=== PATIENT | female | born 1955 | race Caucasian/White ===

== ENCOUNTER 2021-02-09 16:51 | Outpatient (CLI) | payer BC, SELFPAY ==
--- NOTE | ~2021-02-09 | XR_ITS ---
XR hip RT min 2V 02/09/2021 17:11 Indication: Right hip pain for 2 months Procedure: 3 views right hip Comparison: No prior studies for comparison. Findings: No fracture or traumatic malalignment. There is mild osteoarthritis of the right hip. There is lower lumbar spondylosis. Surrounding osseous structures and soft tissues are unremarkable. Impression: 1: Mild osteoarthritis of the right hip. Reviewed, dictated and finalized at location A. Impression: 1: Mild osteoarthritis of the right hip.
== END 2021-02-09 16:52 | disposition home or self-care (01) ==
PROVIDERS: PCP Internal Medicine; Visit Provider Internal Medicine
DX: M16.11 Unilateral primary osteoarthritis, right hip (principal)
CPT/HCPCS: 73502

== ENCOUNTER 2023-06-28 10:23 | Outpatient (CLI) | payer OTHER, SELFPAY ==
--- NOTE | 2023-06-28 10:37 | ECG_ITS ---
Measurements Intervals [place] Rate: 72 P: 53 [place]: 159 QRS: -20 QRSD: 87 T: 41 QT: 367 QTc: 403 Interpretive Statements SINUS RHYTHM POSSIBLE LEFT ATRIAL ENLARGEMENT [-0.1mV P WAVE IN V1/V2] LOW QRS VOLTAGE IN PRECORDIAL LEADS [QRS DEFLECTION < 1.0 mV IN CHEST LEADS] POSSIBLE RIGHT VENTRICULAR CONDUCTION DELAY [RSR (QR) IN V1/V2] SEPTAL MYOCARDIAL INFARCTION [40+ ms Q WAVE IN V1/V2], PROBABLY OLD ABNORMAL ECG NO PREVIOUS ECG AVAILABLE FOR COMPARISON Electronically Signed On 06-28-2023 13:32:54 CDT by Wally Shepherd M.D.
== END 2023-06-28 10:24 | disposition home or self-care (01) ==
LOC: ANHSURGERY 10:28
PROVIDERS: PCP Internal Medicine; Visit Provider Surgery Plastic and Reconstructive Surgery
DX: Z98.890 Other specified postprocedural states (principal); Z01.818 Encounter for other preprocedural examination
CPT/HCPCS: 93005

== ENCOUNTER 2023-07-03 00:53 | Day surgery (SDC) | payer OTHER, SELFPAY ==
--- NOTE | 2023-06-22 12:07 | PC.NURSE ---
Report to the Outpatient Waiting Room, entrance under the green pavilion located off [facility], at time __0730____ on date __07/03/23 . Planned Procedure Time: 0930 . Time changes happen often and if your time is changed the preop area will call you the afternoon before. - You and your visitor will be asked to self-screen and do not enter if you have any COVID symptoms. - A mask is optional within the hospital at this time. Patients may have clear liquids (water, carbonated beverages, clear teas, apple juice) until 3 hours prior to surgery with a maximum of 20 ounces. - No food from midnight until time of surgery - Infants may have breast milk until 4 hours before surgery, formula 6 hours prior to surgery. - Children will be allowed to drink immediately following surgery. If applicable, please bring a bottle or sippy cup to assist with drinking. Juice, water, soda, and popsicles are readily available. For infants on formula, please bring formula the day of surgery. Pacifiers are allowed. Take the following medications with a SIP of water the morning of surgery: __NONE DO NOT STOP ANY OF YOUR OTHER PRESCRIPTION MEDICATIONS PRIOR TO SURGERY ?EXCEPT THE FOLLOWING Medications to discontinue per physician ALL VITAMINS AND SUPPLEMENTS 3 DAYS PRE OP.LAST DOSE 06/29/23 Please no make-up, nail cymro, hairspray, perfume, deodorant, or body powder the day of surgery. No jewelry (including any body piercings) or valuables the day of surgery, leave them at home. Please take a shower or bath the night before, or the morning of, surgery with an antibacterial soap. Wear comfortable, loose fitting clothing. Children are encouraged to wear pajamas. - Jewelry must be removed prior to entering the operating room. Rings and piercings that are not removed may be cut off. - The hospital will not accept responsibility for valuables. - Please leave all valuables, including medications, at home the day of surgery. If you are going home after surgery, a licensed courier delivery driver must drive you home. - NO public transportation without another adult if you receive anesthesia. - We recommend that an adult stay with you for 24 hours following discharge. - We also recommend that you do not drive, make important decision, drink alcoholic beverages, or take any drugs that were not prescribed by your health care provider for at least 24 hours after your discharge time. For Pediatric surgeries, we recommend two adults accompany the child home. Follow any additional instructions given to you from your surgeon. If you or anyone in your household have experienced Covid symptoms in the past week, please notify your surgeon or the nurse liaison at the phone number below for possible testing. Telephone instructions given to _PATIENT and asked if any additional questions and then verbalized understanding. Patient advised to call surgeon office or pre surgery nurse liaison [phone] if any additional questions.
[2023-06-22 12:18] VITALS: BMI 27.2
[2023-07-03] VITALS (10 sets, daily range): BP systolic 97–152; BP diastolic 43–68; PULSE 76–89; RESP 12–18; TEMP 36.6–37.5; O2SAT 93–100
[2023-07-03 08:05] LABS: Urine Cotinine NEGATIVE
[2023-07-03] MEDS: LACTATED RINGERS 1,000 ML 30 ML IV CONT ×2 (08:13→14:15)
--- NOTE | 2023-07-03 08:50 | WPDHPUPDATE1 ---
History and Physical Update Update Date/Time: 07/03/23 08:50 History and Physical has been reviewed, including an updated exam of the patient. There are NO changes in the patient's condition. Risks, benefits, and alternatives have been discussed and questions answered. Patient agrees to proceed with procedure.
--- NOTE | 2023-07-03 08:50 | W.PM.PROC2 ---
Procedure Note - Detailed Date of Procedure 07/03/23 Pre-op Diagnosis skin laxity Post-op Diagnosis Same Procedure Performed 1. Bilateral lateral breast suction lipectomy with skin excision 2. Progressive tension abdominoplasty with suction lipectomy Surgeon Alexys Glover MD Anesthesia General Findings Bilateral breast lipoaspirate: 150 cc Abdominal lipoaspirate: 2700 cc Abdominal tissue removed: 1242 grams Description of Procedure She is here today for the above procedures. Previously and again today the risks, benefits, alternatives were discussed in extensive detail. I wanted them to be very realistic about the risks involved as well as expectations. We discussed aftercare and what to monitor for. I was very upfront about the risks of wound breakdown leading to loss of skin, open wounds, and need for additional procedures with permanent abdominal deformity. We discussed DVT/PE risks and management. Made sure answered all of their questions to their satisfaction today and consent was obtained. They were marked in the preoperative holding area with their verification. The patient was taken to the operating room. Anesthesia was provided by anesthesiology. A Reynaga catheter was started. Placed prone on the operating room table with care taken to protect from injury. Prepped and draped in a standard sterile fashion. A surgical time-out was taken. Stab incisions were made and tumescent solution was infiltrated. Once adequate time was allowed for hemostasis a 5mm basket and 3mm multi hole cannula were utilized to complete suction lipectomy based on S.A.F.E. technique in multiple planes and passes. Suction lipectomy continued to result based on pre-operative planning, intra-operative observation, and rolling pinch test which were in full agreement. Patient was then placed supine with care taken to protect from injury and re-prepped and draped in a standard sterile fashion. Breast Stab incisions were made and tumescent solution was infiltrated. Patient was placed in a sitting positon. Once adequate time was allowed for hemostasis a 5mm basket and 3mm multi hole cannula were utilized to complete suction lipectomy based on S.A.F.E. technique in multiple planes and passes. Suction lipectomy continued to result based on pre-operative planning, intra-operative observation, and rolling pinch test which were in full agreement. Based on preoperative planning and introperative observation planned resection was stapled into place to verify. [place] removed and a 10 blade was used to excise this tissue. Closed with 2-0 Quill, 3-0 Strattafix, 4-0 Monocryl and tissue glue. Abdomen I placed the patient in a flexed position to verify the upper and lower markings would reach. I then placed supine. A thorough abdominal examination was completed. Stab incisions were made and tumescent solution infiltrated. Stab incisions were made and tumescent solution was infiltrated. Once adequate time was allowed for hemostasis a 5mm basket and 3mm multi hole cannula were utilized to complete suction lipectomy based on S.A.F.E. technique in multiple planes and passes. Suction lipectomy continued to result based on pre-operative planning, intra-operative observation, and rolling pinch test which were in full agreement. A 10 blade was used to make the upper incision. I continued dissection down to the level of fascia. Elevated just what was necessary for repair of the diastasis. I then again flexed the bed to verify the upper skin flap would reach the lower markings without tension. Once verified I placed her supine once again and a 10 blade used to make the lower incision. I elevated up to level the umbilicus and left the umbilicus intact on a well-vascularized stalk. The intervening tissue was removed. A 2 mm blunt cannula with 0.5% bupivicaine was injected deep to the fascia bilaterally. I plicated the diastasis recti using 0 PDO stratafix
--- NOTE | 2023-07-03 09:01 | WPDANESEPPF ---
Anes - Initial Pre Proc Eval Procedure: Operation Date: 07/03/23 09:30 Proposed Procedures p Skin Excision with Liposuction of Bilateral Lateral Breasts - Alexys Glover MD s Abdominoplasty with Liposuction - Alexys Glover MD Date/Time: 07/03/23 09:01 Surgeon: Alexys Glover MD Pre Op Diagnosis: skin laxity Patient Data Age: 67 Gender: F Height: 1.55 m Weight: 66.3 kg Last Vital Signs Temp 37.4 C 07/03/23 07:47 Pulse 76 07/03/23 07:47 Resp 18 07/03/23 07:47 BP 152/63 H 07/03/23 07:47 Pulse Ox 98 07/03/23 07:47 O2 Del Method Room Air 07/03/23 07:47 Allergies Allergy/AdvReac Type Severity Reaction Status Date / Time No Known Allergies Allergy Verified 07/03/23 08:09 Home Medications Medication Instructions Recorded Confirmed Type calcium carbonate 600 mg calcium 600 mg PO DAILY 10/09/19 07/03/23 History (1,500 mg) tablet (Calcium) fluticasone propionate 50 1 spray intranasal DAILY 10/09/19 06/22/23 History mcg/actuation nasal spray,suspension (Allergy Relief (fluticasone)) mpwdhxdwltst-lcxpdjmk-crlgs acid 1 cap PO DAILY 10/09/19 07/03/23 History 400 mcg-vitamin K 80 mcg capsule (Multi For Her 50 Plus) omega-3 fatty acids 1,000 mg 1,000 mg PO DAILY 10/09/19 07/03/23 History capsule (Fish Oil Concentrate) cholecalciferol (vitamin D3) 50 50 mcg PO DAILY 01/25/21 07/03/23 History mcg (2,000 unit) capsule Laboratory Tests 07/03/23 07:45 Cotinine Negative Patient hx anesthesia problems: none Family hx anesthesia problems: none Results Review: All pre-operative results and documents have been reviewed as part of the pre-operative evaluation. [facility] Past Medical History Medical History BCC (basal cell carcinoma of skin) Chest wall pain Dislocation, jaw Elbow pain, left Greater trochanteric bursitis of right hip Hoarseness, chronic SCC (squamous cell carcinoma) Surgical History Surgical History History of bilateral breast reduction surgery History of section, classical History of discectomy cervical diskectomy with fusion 2000 Family History Family History Father Malignant neoplasm of prostate Family history of malignant neoplasm of urinary bladder Mother Family history of malignant neoplasm of cervix Social History Social History Smoking status: Never smoker Second hand tobacco smoke exposure: No Alcohol intake: current Drinks per week: 1 Alcohol use details: social Living arrangements: with family Occupation/Education: occupation Additional occupation/education comments: [employer], Gender identity (if verbalized by the patient): Female Spiritual care concerns: No Anes - Eval Final PreProcedure Day of Procedure 07/03/23 09:01 Patient weight: overweight Heart: regular rate and rhythm Lungs: clear to auscultation Airway: Mallampati scale class III, special considerations poor opening and other (hx of jaw dislocation at home required surgery, ACD C5-6) Neurological: alert and oriented Last oral intake: >/= 8 hours ASA classification: II Emergent: no Anesthetic plan: proceed Anesthesia type and monitoring: general ETT (glidescope) Results Review: All pre-operative results and documents have been reviewed as part of the pre-operative evaluation. Informed Consent: The patient's anesthetic plan and its attendant risks and benefits were discussed with the patient/family/POA. Questions were solicited and answers provided to the satisfaction of the patient/family/POA.
[2023-07-03] MEDS: ceFAZolin 2 GM/D5W 50 ML 2 GM/50 ML BAG IVPB (09:06)
[2023-07-03] MEDS: TRANEXAMIC ACID 1,000 MG/10 ML AMPUL 1000 MG IV PUSH (09:26)
[2023-07-03] MEDS: LACTATED RINGERS IRRIG 1,000 ML, LIDOCAINE HCL 1% LOCAL INJ 50 ML, EPINEPHrine HCL INJ ... INFILTRATE ×3 (10:39→10:58)
[2023-07-03] MEDS: BUPIVACAINE/EPINEPHRINE 0.5% 50 ML VIAL 60 ML INFILTRATE (11:19)
[2023-07-03] MEDS: LACTATED RINGERS 1,000 ML 125 ML IV CONT ×2 (14:15→21:21)
--- NOTE | 2023-07-03 15:24 | PC.NURSE ---
This patient, Rhiannon Inman, was received from pacu on 07/03/23 at 1524. Patient/family oriented to unit policies and routines. scd's applied.
[2023-07-03] MEDS: KETOROLAC 10 MG TABLET PO ×2 (16:07→22:30)
[2023-07-03] MEDS: carisoprodoL (*CRX) 350 MG TABLET PO (18:32)
[2023-07-03] MEDS: ENOXAPARIN 40 MG/0.4 ML SYRINGE SUB-Q (21:22)
[2023-07-03] MEDS: DOCUSATE SODIUM 100 MG CAPSULE PO (21:22)
[2023-07-03] MEDS: oxyCODONE/ACETAMINOPHEN (*CRX) 5-325 MG TABLET 1 TABLET PO (22:32)
[2023-07-04] MEDS: carisoprodoL (*CRX) 350 MG TABLET PO (00:08)
[2023-07-04 05:00] VITALS: BP 87/51; PULSE 83; RESP 14; TEMP 36.6; O2SAT 92
[2023-07-04] MEDS: KETOROLAC 10 MG TABLET PO ×2 (05:03→10:40)
--- NOTE | 2023-07-04 06:46 | WPDPN ---
Progress Note: A&P Assessment and Plan (1) Skin laxity: Code(s): L57.4 - Cutis laxa senilis Status: Acute Assessment and Plan: Doing well after lateral breast /chest wall suction lipectopy with skin removal and progressive tension abdominoplasty. Will discharge home. Today we had a lengthy discussion about the care. Activity limitations. What to monitor for. What is an emergency and when to dial 911 / proceed to the ER. This was a lengthy open ended conversation making sure they were well informed. Answered all their questions. They voiced a clear understanding. Will discharge home. Call with any questions or concerns in the meantime. (2) Localized adiposity: Code(s): E65 - Localized adiposity Status: Acute Subjective Date/time seen: 07/04/23 06:46 Interval history: Doing well after bilateral lateral breast / chest wall suction lipectomy / skin removal and progressive tension abdominoplasty with suction lipectomy. Ambulating. Pain controlled. No nausea / vomiting. No fevers / chills. No shortness of breast. No chest pain. No calf tenderness. Review of Systems Review of Systems: All systems reviewed & are unremarkable except as noted in HPI and below Exam Narrative: Alert & Oriented NOD Respiratory unlabored Bilateral lateral breasts healing well. No signs of infection. No hematoma. No seroma. Abdomen is healing well. No signs of infection. No hematoma. No seroma. Good color and capillary refill. No calf tenderness. Negative Mark's Objective Data Vital Signs Vital Signs: Vital Signs - 24 hr 07/03/23 07:47 07/03/23 14:15 07/03/23 14:30 Temperature 37.4 C 37.5 C Pulse Rate 76 78 78 Respiratory Rate 18 12 12 Blood Pressure 152/63 H 110/62 125/68 Pulse Oximetry 98 98 99 Oxygen Delivery Room Air Simple Face Mask Simple Face Mask Oxygen Flow Rate 6 6 07/03/23 14:45 07/03/23 14:50 07/03/23 15:00 Temperature Pulse Rate 82 85 Respiratory Rate 13 18 Blood Pressure 120/67 119/57 L Pulse Oximetry 100 98 96 Oxygen Delivery Simple Face Mask Room Air Nasal Cannula Oxygen Flow Rate 6 2 07/03/23 15:15 07/03/23 15:25 07/03/23 19:00 Temperature 37.2 C Pulse Rate 80 80 Respiratory Rate 12 16 Blood Pressure 119/57 L 112/63 Pulse Oximetry 96 97 98 Oxygen Delivery Nasal Cannula Nasal Cannula Oxygen Flow Rate 2 1 07/03/23 19:00 07/03/23 23:30 07/04/23 05:00 Temperature 36.9 C 36.6 C 36.6 C Pulse Rate 89 80 83 Respiratory Rate 18 16 14 Blood Pressure 115/48 L 97/43 L 87/51 L Pulse Oximetry 98 93 92 Oxygen Delivery Oxygen Flow Rate Intake/Output Intake/Output: Intake & Output 07/01/23 07/02/23 07/03/23 07/04/23 23:59 23:59 23:59 23:59 Intake Total 1350 480 Output Total 1467 120 Balance -117 360 Meds/Results Medications: Active Medications Generic Name Dose Route Start Last Admin Trade Name Freq PRN Reason Stop Dose Admin Carisoprodol 350 mg 07/03/23 18:00 07/04/23 06:00 Carisoprodol (*Crx) 350 Mg Tablet PO Not Given Q6HR [facility] Diazepam 5 mg 07/03/23 13:52 Diazepam (*Crx) 5 Mg Tablet PO TID PRN Anxiety Docusate Sodium 100 mg 07/03/23 21:00 07/03/23 21:22 Docusate Sodium 100 Mg Capsule PO 100 mg Q12HR [facility] Administration Enoxaparin Sodium 40 mg 07/03/23 20:00 07/03/23 21:22 Enoxaparin 40 Mg/0.4 Ml Syringe SUB-Q 40 mg DAILY@2000 [facility] Administration Fluticasone Propionate 1 spray 07/04/23 09:00 Fluticasone Propionate 0.05% Na Spr 16 Gm Btl (*Bkc) NASAL DAILY [facility] Ketorolac Tromethamine 10 mg 07/03/23 18:00 07/04/23 05:03 Ketorolac 10 Mg Tablet PO 07/05/23 12:01 10 mg Q6HR [facility] Administration Morphine Sulfate 2 mg 07/03/23 13:52 Morphine Sulfate (*Crx) 2 Mg/Ml Inj IV PUSH Q2H PRN Pain Ondansetron HCl 4 mg 07/03/23 13:52 Ondansetron Inj 4 Mg/2 Ml Vial IV PUSH Q6H PRN Nausea Oxycodone/Acetaminophen
--- NOTE | 2023-07-04 06:50 | P.DS_ITS ---
DS: Admitting Diagnosis Discharge Date 07/04/2023 Admitting Diagnosis 1. Skin laxity 2. Localized adiposity DS: Discharge Diagnosis Discharge Diagnosis (1) Skin laxity: Code(s): L57.4 - Cutis laxa senilis Status: Acute (2) Localized adiposity: Code(s): E65 - Localized adiposity Status: Acute DS: Summary Hospital Course Hospital Course: Has done very well after lateral breast /chest wall suction lipectomy with skin removal and progressive tension abdominoplasty with suction lipectomy. Will discharge home. She has an elevated Caprini and is going to use lovenox post-op. Time Spent with Patient Time attestation: Total time spent providing and/or coordinating discharge services: Exam Narrative: Alert & Oriented NOD Respiratory unlabored Bilateral lateral breasts healing well. No signs of infection. No hematoma. No seroma. Abdomen is healing well. No signs of infection. No hematoma. No seroma. Good color and capillary refill. No calf tenderness. Negative Mark's DS: Data Data Completed and Pending Labs on day of discharge: Labs from last 24 hours 07/03/23 07:45 Cotinine Negative Discharge Plan Discharge Patient Disposition: Home, Self-Care Discharge Instructions: POST OPERATIVE DISCHARGE INSTRUCTIONS ALEXYS GLOVER M.D. [facility] [address] [place] [address] * No driving for 24 hours after anesthesia and while you are taking pain medication. * Take all prescribed medication as directed * Diet as tolerated. * No lifting or activity that raises blood pressure for 48 hours. * Regular walking / ambulation. * May shower 24 hours after surgery. Once you shower do not take pain medication before showering as the combination of medication and heat may cause you to feel dizzy or pass out. * No pools or tubs for 2 weeks. * Slowly stand up straight as tolerated. * No straining or lifting more than 20 pounds. * If no bowel movement within 24 hours may use laxative. * Call with any questions or concerns. * Dressing Care: Continue surgical bra / abdominal binder / foam 23 hours per day. * We will see you tomorrow for hemostatic net removal. * Remove the Scopolamine patch that was placed behind your ear in 72 hours or less. Wash your hands after touching. If you have any questions or concerns, please call the office . If it is after hours you will be directed to the control chemist exchange. Shortness of breath, chest pain, or other medical emergency dial 911 / proceed to the Emergency Room. Stand Alone Forms: General Discharge Instructions Follow-up/Referrals: Aleyxs Glover MD [Physician] - Other (Tomorrow 07/05/2023) Discharge Medications: Continued fluticasone propionate [Allergy Relief (fluticasone)] 50 mcg/actuation spray,suspension 1 spray NASAL DAILY Rx Instructions: administer into each nostril Multi For Her 50 Plus 400-80 mcg capsule 1 cap PO DAILY omega-3 fatty acids [Fish Oil Concentrate] 1,000 mg capsule 1,000 mg PO DAILY calcium carbonate [Calcium 600] 600 mg calcium (1,500 mg) tablet 600 mg PO DAILY cholecalciferol (vitamin D3) 50 mcg (2
[2023-07-04] MEDS: oxyCODONE/ACETAMINOPHEN (*CRX) 5-325 MG TABLET 1 TABLET PO (08:27)
[2023-07-04] MEDS: DOCUSATE SODIUM 100 MG CAPSULE PO (08:30)
[2023-07-04] MEDS: FLUTICASONE PROPIONATE 0.05% NA SPR 16 GM BTL (*BKC) 1 SPRAY NASAL (08:31)
[2023-07-04 08:35] VITALS: BP 104/55; PULSE 86; RESP 18; TEMP 37.6; O2SAT 93
--- NOTE | 2023-07-04 09:38 | PC.NURSE ---
0624 Dr. Glover at patient's bedside, he removed her JUN drain from her lower right abdominal area, gauze applied.
--- NOTE | 2023-07-04 10:00 | WPDANESPN ---
Anes - Prog Note Post-Op Date/Time: 07/04/23 10:00 Cardiovascular status: normal Respiratory status: normal Airway patency: baseline Mental status: baseline Post-Op hydration status: normal Vital Signs: Last Vital Signs Temp 37.6 C H 07/04/23 08:35 Pulse 86 07/04/23 08:35 Resp 18 07/04/23 08:35 BP 104/55 L 07/04/23 08:35 Pulse Ox 93 07/04/23 08:35 O2 Del Method Nasal Cannula 07/03/23 19:00 O2 Flow Rate 1 07/03/23 19:00 Pain Score (VAS): 0 I/O: Intake & Output 07/03/23 07/04/23 07/04/23 23:59 07:59 15:59 Intake Total 600 480 Output Total 1312 120 Balance -712 360 Post-procedural complaints: none Patient Feedback: Patient satisfied with anesthetic care.
== END 2023-07-04 10:53 | disposition home or self-care (01) ==
LOC: ANHSURGERY 15:01 → ANHOB2 15:23
PROVIDERS: PCP Internal Medicine; Visit Provider Surgery Plastic and Reconstructive Surgery
PROC: (CPT 15877; principal; 2023-07-03 09:30)
PROC: (CPT 15877; 2023-07-03 09:30)
DX: Z41.1 Encounter for cosmetic surgery (principal); L57.4 Cutis laxa senilis; E65 Localized adiposity
CPT/HCPCS: 15877; 15830; 15847; 80307; 99199; A9270; J0171; J0330; J0690; J1100; J1170; J1650; J2250; J2371; J2405; J2704; J7120